=== PATIENT | female | born 1940 | race Caucasian/White ===

== ENCOUNTER 2018-08-02 23:30 | Emergency (ER) | payer OTHER ==
[~2018-08-02] VITALS: Ht 152.4 cm; Wt 68.0 kg
[2018-08-02 23:37] VITALS: Ht 152.4 cm; Wt 68.0 kg
[2018-08-03 00:34] LABS: CALCIUM 9.3 mg/dL (8.5-10.1); CHLORIDE SERUM 109 mmol/L (98-107); CREATININE SERUM 0.6 mg/dL (0.6-1.0); GLUCOSE SERUM 102 mg/dL (74-106); POTASSIUM SERUM 3.5 mmol/L (3.5-5.1); SODIUM SERUM 144 mmol/L (136-145)
[2018-08-03 00:35] LABS: BASOPHIL % 0.3 % (0-2); PLATELET COUNT 255 x10^3mcL (130-400); RED CELL DISTRIBUTION WIDTH 13.6 % (11.5-14.5)
[2018-08-03 00:49] LABS: FREE T4 1.02 ng/dL (0.76-1.46)
[2018-08-03 04:33] VITALS: BP 138/50
== END 2018-08-03 04:33 | disposition home or self-care (01) ==
LOC: ED 23:30
PROVIDERS: Emergency Medicine
DX: I10 Essential (primary) hypertension (principal); E78.00 Pure hypercholesterolemia, unspecified; Z86.73 Personal history of transient ischemic attack (TIA), and cerebral infarction without residual deficits; Z90.89 Acquired absence of other organs; Z90.710 Acquired absence of both cervix and uterus
CPT/HCPCS: 36415; 84439; Q0092